=== PATIENT | female | born 1950 | race American Indian/Alaskan Native ===

== ENCOUNTER 2017-09-26 09:02 | Emergency (ER) | payer MEDICARE ==
[2017-09-26 09:14] VITALS: BP 138/52
[2017-09-26] MEDS ORDERED: BOOSTRIX IM ONE (10:40)
--- NOTE | 2017-09-26 10:40 | Emergency Department Report ---
ED Laceration HPI - HPI Chief Complaint: Laceration/Recheck/Suture Stated Complaint: LAC L FINGER Time Seen by Provider: 09/26/17 10:36 Occurred When: Yesterday Location: Upper Extremity (L third fingertip) Severity: mild Tetanus Status: Not up to Date Laceration Symptoms: No Foreign Body Sensation, No Numbness, No Weakness, No Pain Other History: Cut 3rd L fingertip with knife yesterday. States tetanus UTD and was concerned about getting an infection. ED Review of Systems ROS: Stated complaint: LAC L FINGER Other details as noted in HPI Constitutional: denies: chills, fever Eyes: denies: eye pain, eye discharge, vision change ENT: denies: ear pain, throat pain Respiratory: denies: cough, shortness of breath, wheezing Cardiovascular: denies: chest pain, palpitations Endocrine: no symptoms reported Gastrointestinal: denies: abdominal pain, nausea, diarrhea Genitourinary: denies: urgency, dysuria, discharge Musculoskeletal: denies: back pain, joint swelling, arthralgia Skin: denies: rash, lesions Neurological: denies: headache, weakness, paresthesias Psychiatric: denies: anxiety, depression Hematological/Lymphatic: denies: easy bleeding, easy bruising ED Past Medical Hx - Past Medical History Previous Medical History?: Yes Hx Diabetes: Yes - Surgical History Past Surgical History?: Yes Additional Surgical History: breast - Social History Smoking Status: Never Smoker Substance Use Type: None - Medications Home Medications: Home Medications Medication Instructions Recorded Confirmed Last Taken Type traMADol [Ultram 50 MG tab] 50 mg PO Q6HR PRN #15 tablet 06/13/15 Unknown Rx Cephalexin [Keflex] 500 mg PO Q12HR #14 cap 09/26/17 Unknown Rx Laceration Physical Exam - Exam General: Vital signs noted. No distress. Alert and acting appropriately. Wound Length (cm): 1 Laceration Location: Upper Extremity (< 1 cm superficial cut to third fingertip on L hand. No sutures necessary) Laceration Exam: Yes Normal Distal CMS, No Foreign Body, No Exposed Tendon, Vessel, or Nerve, No Tendon Injury ED Course Vital Signs 09/26/17 09:08 Temperature 98.2 F Pulse Rate 60 Respiratory 18 Rate Blood Pressure 138/52 O2 Sat by Pulse 100 Oximetry - Reevaluation(s) Reevaluation #1: 09/26/17 10:38 Pt in NAD and stable for d/c. ED Medical Decision Making - Medical Decision Making Pt has minor cut. Will update tetanus and give prophylactic abx. Pt to follow with PCP. - Differential Diagnosis lac, need for tetanus booster Critical care attestation.: If time is entered above; I have spent that time in minutes in the direct care of this critically ill patient, excluding procedure time. ED Disposition Clinical Impression: Laceration of finger Qualifiers: Encounter type: initial encounter Finger: middle finger Damage to nail status: without damage Foreign body presence: without foreign body Laterality: left Qualified Code(s): S61.213A - Laceration without foreign body of left middle finger without damage to nail, initial encounter Disposition: DC-01 TO HOME OR SELFCARE Is pt being admited?: No Condition: Good Instructions: Finger Laceration (ED) Prescriptions: Cephalexin [Keflex] 500 mg PO Q12HR #14 cap Referrals: PENNY NANCE [Other] - 3-5 Days Time of Disposition: 10:39
== END 2017-09-26 11:12 | disposition home or self-care (01) ==
LOC: ED 09:02
DX: S61.213A Laceration without foreign body of left middle finger without damage to nail, initial encounter (principal); E11.9 Type 2 diabetes mellitus without complications; W26.0XXA Contact with knife, initial encounter; Y93.89 Activity, other specified; Y92.89 Other specified places as the place of occurrence of the external cause; Y99.8 Other external cause status
CPT/HCPCS: 90471; 90715; 99282